=== PATIENT | male | born 1985 | race Caucasian/White ===

== ENCOUNTER → 2019-04-20 | Outpatient (CLI) | payer OTHER | END | disposition home or self-care (01) | LOC: LAB 13:36 | PROVIDERS: ATTEND Physician Assistant | DX: R53.83 Other fatigue (principal) | CPT/HCPCS: 36415; 84402; 84403 ==

== ENCOUNTER 2020-01-19 13:30 | Emergency (ER) | payer OTHER ==
[~2020-01-19] VITALS: Ht 185.4 cm; Wt 100.4 kg
[2020-01-19 13:37] VITALS: BP 150/87
[2020-01-19] MEDS ORDERED: LIDOCAINE-MPF 1%, 5ML ONE (14:12)
[2020-01-19] MEDS ORDERED: DIPH,PERTUSS(ACELL),TET VAC/PF 0.5 ML IM-VACC ONE ×2 (14:12→14:30)
[2020-01-19] MEDS ORDERED: LIDOCAINE-MPF 1%, 5ML INFIL ONE (14:30)
[2020-01-19] MEDS ORDERED: NEOSPORIN OINT. PKT 1 PACKET ONE (15:58)
--- NOTE | 2020-01-19 16:19 | NUR ---
Patient/Caregiver given discharge instructions and they have confirmed that they understand the instructions. Patient ambulatory with steady gait.
== END 2020-01-19 16:21 | disposition home or self-care (01) ==
LOC: ED 16:00
DX: S91.112A Laceration without foreign body of left great toe without damage to nail, initial encounter (principal); X58.XXXA Exposure to other specified factors, initial encounter; Y93.01 Activity, walking, marching and hiking; Y92.89 Other specified places as the place of occurrence of the external cause; Y99.8 Other external cause status
CPT/HCPCS: 12001; 90471; 90715; 99283